=== PATIENT | female | born 1950 | race Caucasian/White ===

== ENCOUNTER 2017-08-18 12:44 | Observation (INO) | payer MEDICARE, SELFPAY ==
[2017-08-18] MEDS ORDERED: Lorazepam 2 MG/ML VIAL ONE (12:58)
[2017-08-18] MEDS ORDERED: Acetaminophen 500 MG TAB ONE (13:37)
[2017-08-18] MEDS ORDERED: Ondansetron HCl/PF 4 MG/2 ML Vial IVP PRN (16:28)
[2017-08-18] MEDS ORDERED: Ondansetron ODT 4 MG TAB SL PRN (16:28)
[2017-08-18] MEDS ORDERED: Acetaminophen 325 MG TAB PO PRN (18:00)
[2017-08-18] MEDS ORDERED: Lorazepam 0.5 MG TAB PO PRN (18:10)
--- NOTE | 2017-08-18 18:55 | RAD ---
PORTABLE CHEST: 08/18/17 INDICATIONS: Chest pain. Lungs are clear. Heart and mediastinum appear normal. Vascular markings are normal. IMPRESSION: Unremarkable portable chest. POS: [facility]
[2017-08-18 19:38] LABS: ALT (SGPT) 22 U/L (8-55); AST (SGOT) 22 U/L (5-34); Alkaline Phosphatase 118 U/L (40-150); Anion Gap 13 mmol/L (10-20); BUN (Urea Nitrogen) 15 mg/dL (9.8-20.1); Bilirubin, Total 0.3 mg/dL (0.2-1.2); Calc. Creatinine Clearance 97 mL/min (70-130); Calcium 9.4 mg/dL (7.8-10.44); Carbon Dioxide 24 mmol/L (23-31); Chloride 106 mmol/L (98-107); Estimated GFR-MDRD 74; Globulin 2.8 g/dL (2.4-3.5); Glucose 118 mg/dL (80-115); Potassium 3.6 mmol/L (3.5-5.1); Protein, Total 6.8 g/dL (6.0-8.3); Sodium 139 mmol/L (136-145)
[2017-08-18 19:44] LABS: Troponin I 0.011 ng/mL (< 0.028)
[2017-08-18 19:51] LABS: #Basophils 0.1 thou/uL (0.0-0.2); #Eosinphils 0.2 thou/uL (0.0-0.7); #Lymphocytes 1.7 thou/uL (1.20-3.40); #Monocytes 0.6 thou/uL (0.11-0.59); #Neutrophils 4.3 thou/uL (1.40-6.50); %Basophils 1.2 % (0.0-1.0); %Eosinophils 2.3 % (0.0-10.0); %Lymphocytes 25.3 % (21.0-51.0); %Monocytes 8.6 % (0.0-10.0); %Neutrophils 62.6 % (42.0-75.0); Hemoglobin 13.8 g/dL (12.0-16.0); Mean Corpuscular HGB CONC 32.3 g/dL (32.0-36.0); Mean Corpuscular Hemoglobin 28.7 pg (27.0-31.0); Mean Corpuscular Volume 88.7 fl (81.0-99.0); Mean Platelet Volume 7.1 fL (7.4-10.4); Platelet Count 255 thou/uL (130-400); RBC Distribution Width 12.8 % (11.5-14.5); White Blood Cell (WBC) Count 6.9 thou/uL (4.8-10.8)
[2017-08-18] MEDS: Lorazepam 1 MG TAB PO PRN (22:43)
[2017-08-19] MEDS: Acetaminophen 325 MG TAB PO PRN ×2 (08:07→18:25)
[2017-08-19] MEDS: Lorazepam 1 MG TAB PO PRN ×2 (08:07→20:55)
[2017-08-19] MEDS ORDERED: Ondansetron ODT 4 MG TAB PO PRN (11:11)
[2017-08-19 17:54] LABS: Amphetamine Not Detected (NotDetected); Barbiturates Screen Not Detected (NotDetected); Benzodiazepine Screen Detected (NotDetected); Cocaine Metabolite Screen Not Detected (NotDetected); Medtox Control Line Valid? VALID (VALID); Methadone Not Detected (NotDetected); Methamphetamine Not Detected (NotDetected); Opiate Screen Not Detected (NotDetected); Oxycodone Screen Not Detected (NotDetected); Phencyclidine (PCP) Not Detected (NotDetected); THC/Cannabinoid Screen Not Detected (NotDetected); Tricyclic Screen Not Detected (NotDetected)
[2017-08-19] MEDS ORDERED: Naproxen 500 MG TAB PO SCH (21:45)
[2017-08-19 23:08] LABS: Bilirubin Negative (Negative); Blood, Urine Negative (Negative); Clarity Clear (Clear); Glucose, Urine (Dipstick) Negative (Negative); Leukocyte Small (Negative); Nitrite Negative (Negative); Protein, Urine (Dipstick) Negative (Neg-Trace); Urobilinogen 0.2 mg/dL (0.2-1.0); pH, Urine 5.5 (5.0-9.0)
[2017-08-19 23:24] LABS: Bacteria/HPF 1+ HPF (None Seen); RBC/HPF None Seen HPF (0-3); Squamous Epithelial None Seen HPF (0-3); WBC/HPF 0-3 HPF (0-3)
--- NOTE | 2017-08-20 01:11 | HP ---
History and physical for placement in the observation diallo. DATE OF PLACEMENT IN THE OBSERVATION DIALLO: 08/18/2017 CHIEF COMPLAINT: Severe headache, tearfulness, dyspnea, anxiety. HISTORY OF PRESENT ILLNESS: The patient is a 67-year-old white female, not well known to myself, who has periodically been in the office for complaints of bronchitis and nasal congestion, who presented to the emergency room hysterically crying, anxiety, headaches, numbness and tingling in both arms an d legs for the previous 24 hours. She has no previous history of hypertension, coronary artery disea se, or pulmonary disease. She has been under a great deal of stress secondary to family stress relat ed to the of her parents and subsequent settling over the state, and has recently been served a n eviction notice. She is recently , but her is not present and out of state at this time. She does state that she has never attempted suicide, but has thought about suicide the last se veral weeks and has had a gun in her hand when she thought about it. She was seen in the emergency r oom, evaluated, and appeared to improve with IM lorazepam and Tylenol, but refused to go home as she felt she could not care for herself. Therefore, she has been placed in the observation diallo for charbel toring of her condition and for a possible mental health evaluation. REVIEW OF SYSTEMS: HEENT: Complained of headache with no eye pain. No sore throat or hoarseness. Cardiovascular: She denies chest pain, but does state that she has some shortness of breath and diff iculty catching her breath. She denied any wheezing. She has no orthopnea, paroxysmal nocturnal dys pnea. She has no dyspnea on exertion. Respiratory: She denies cough, sputum production, pneumonia, asthma, tuberculosis. Does have a history of bronchitis in the past. Gastrointestinal: She does h ave some nausea, but no vomiting, diarrhea, or abdominal pain. Genitourinary: Denies dysuria, hemat uria, nocturia. Neurologic: She denied any localized numbness or tingling in arms or extremities, b ut says she has diffuse shakiness and tingling over her entire body and feels like her legs she canno t move. Psychiatric: She denies any alcohol or drug abuse, but has had this in her distant past, bu t not recently. PAST MEDICAL HISTORY: Remarkable for hysterectomy, dental surgery. She does have a history of anxie ty, depression, PTSD, but has not taken medication. SOCIAL HISTORY: She is , but recently remarried. She lives alone however at this time. She denies alcohol use. She is a former drug user. Has not used any drugs in 26 years as well as smoke d in . PHYSICAL EXAMINATION: GENERAL: The patient is a middle-aged white female, appears cheerful, but in no acute distress; orie nted x3; fairly cooperative, but somewhat tangential in her answers to her questions and evasive in s ome of the answers. She appears severely anxious and becomes tearful during some of the questions ab out her preceding events leading to her admission. HEENT: Pupils are equal, round, and reactive to light and accommodation. Sclerae anicteric. Conjun ctivae pale. Oral mucous membranes, well hydrated. NECK: Supple. There are no nodes or masses. JVP is not elevated. LUNGS: Clear. CARDIAC: Regular rhythm. No gallops or murmurs. ABDOMEN: Soft and nontender with no masses or organomegaly. SKIN/EXTREMITIES: No edema, clubbing, cyanosis. NEUROLOGIC: Cranial nerves II-XII are intact. Deep tendon reflex is 2+ and equal. There are absent Babinski. LABORATORY DATA: Showed her to have white count of 6900, hematocrit 42, hemoglobin 13. Sodium 139; potassium 3.6; chloride 106; bicarbonate 24; BUN 15; creatinine 0.78; glucose 118, nonfasting; calciu m 9.4. Total bilirubin 0.3, AST 22, ALT 22. Troponin is 0.011. Alkaline phosphatase 118, albumin 4 , globulin 2.8. Drug screen only shows the benzodiazepine that she was given in the emergency room a nd alcohol level is less than 10. The patient had admitted to myself and to psychological counselor in [facility] that she has thou ght about suicide and therefore she was felt to be unsafe to be at home and needs to be on the suicid e watch, if this is not available. ASSESSMENT: Severe anxiety and depression brought on by stress in life, but with suicidal thoughts w ith no actions for some time. PLAN: Consult [facility]. Possibly consider transfer to another facility where suicidal precautions can b e entertained. Discuss situation with when he arrives.
[2017-08-20] MEDS: Acetaminophen 325 MG TAB PO PRN ×2 (04:23→14:38)
[2017-08-20] MEDS: Lorazepam 1 MG TAB PO PRN ×3 (04:24→21:03)
[2017-08-20] MEDS: Naproxen 500 MG TAB PO SCH ×2 (08:58→21:04)
[2017-08-20 16:08] VITALS: BMI 30.7
[2017-08-20 19:25] VITALS: BP 161/75; TEMP 97.6
[2017-08-21] MEDS ORDERED: Lisinopril 5 MG TAB PO SCH (09:00)
--- NOTE | 2017-08-22 08:10 | DIS ---
DATE OF DISCHARGE TO HOME: 08/20/2017 FINAL DIAGNOSES: Acute panic reaction, anxiety reaction secondary to severe stress with suicidal amy ations, resolved with counseling and lorazepam. She has been cleared by [facility] to follow up with [facility] as an outpatient. The patient has been under a great deal of s tress secondary to family, social, and economical stress, presented with severe headache, chest pain, shortness of breath. He was seen in the emergency room to have elevated blood pressure 190/88, init ially 163/74, improved slightly to 142/71, then increased again prior to discharge to 90/88 and then down to 160/75. It was felt this was due to somewhat distress, but because of persistent elevation, she was started on lisinopril 5 mg daily, in addition to her lorazepam 0.5 mg every 6 hours as needed . She has refused any long-acting antidepressants. She does agree to being evaluated by [facility]. PHYSICAL EXAMINATION: Her physical examination in the hospital was entirely normal. LUNGS: Clear. CARDIAC: Shows regular rhythm. ABDOMEN: Soft, nontender. NEUROLOGIC: Intact. LABORATORY DATA: CBC shows a white count of 6900, hematocrit 42, hemoglobin 13. Troponin 0.011. So dium 139, potassium 3.6, chloride 106, bicarb 24, BUN 15, creatinine 0.78, AST 22, ALT 22. Liver fun ctions normal. Urinalysis within normal limits. Toxicology showed less than 10 alcohol and only the benzodiazepine within the Emergency Room drug screen. She is feeling well. She has been discharged to the care of her who will monitor for safety and for followup. She will be seen by myself and followup in 1-2 weeks in [facility].
== END 2017-08-20 21:12 | disposition home or self-care (01) ==
LOC: NAV ERS 12:44 → NAV ACUTE 15:34
PROVIDERS: ADMIT Internal Medicine; ATTEND Internal Medicine
DX: R45.851 Suicidal ideations (principal); F41.1 Generalized anxiety disorder; F43.0 Acute stress reaction; F32.9 Major depressive disorder, single episode, unspecified
CPT/HCPCS: 36415; 71045; 80053; 80306; 80307; 81015; 84484; 85025; 87077; 87086; 87186; 96372; G0378; J2060

== ENCOUNTER 2017-09-19 12:34 | Observation (INO) | payer MEDICARE ==
[2017-09-19] MEDS ORDERED: Sodium Chloride 0.9% 1,000 ML ONE (13:13)
[2017-09-19] MEDS ORDERED: Metoclopramide HCl 10 MG/2 ML VIAL ONE (13:13)
[2017-09-19 13:53] LABS: #Basophils 0.1 thou/uL (0.0-0.2); #Eosinphils 0.2 thou/uL (0.0-0.7); #Lymphocytes 1.6 thou/uL (1.20-3.40); #Monocytes 0.5 thou/uL (0.11-0.59); #Neutrophils 4.8 thou/uL (1.40-6.50); %Basophils 1.2 % (0.0-1.0); %Eosinophils 2.7 % (0.0-10.0); %Lymphocytes 22.4 % (21.0-51.0); %Monocytes 6.7 % (0.0-10.0); %Neutrophils 67.1 % (42.0-75.0); Hemoglobin 13.3 g/dL (12.0-16.0); Mean Corpuscular HGB CONC 31.3 g/dL (32.0-36.0); Mean Corpuscular Hemoglobin 28.1 pg (27.0-31.0); Mean Corpuscular Volume 89.8 fL (78.0-98.0); Mean Platelet Volume 6.8 fL (7.4-10.4); Platelet Count 242 thou/uL (130-400); RBC Distribution Width 13.2 % (11.5-14.5); Red Blood Cell (RBC) Count 4.75 mill/uL (4.20-5.40); White Blood Cell (WBC) Count 7.2 thou/uL (4.8-10.8)
[2017-09-19 14:01] LABS: CKMB 2.3 ng/mL (0-6.6); Troponin I 0.021 ng/mL (< 0.028)
[2017-09-19 14:08] LABS: ALT (SGPT) 22 U/L (8-55); AST (SGOT) 24 U/L (5-34); Albumin 3.9 g/dL (3.4-4.8); Alkaline Phosphatase 122 U/L (40-150); Anion Gap 16 mmol/L (10-20); BUN (Urea Nitrogen) 11 mg/dL (9.8-20.1); Bilirubin, Total 0.4 mg/dL (0.2-1.2); CK (CPK) 88 U/L (29-168); Calc. Creatinine Clearance 0 mL/min (70-130); Calcium 9.2 mg/dL (7.8-10.44); Carbon Dioxide 20 mmol/L (23-31); Chloride 106 mmol/L (98-107); Estimated GFR-MDRD 79; Globulin 2.7 g/dL (2.4-3.5); Glucose 102 mg/dL (80-115); Lipase 19 U/L (8-78); Protein, Total 6.6 g/dL (6.0-8.3); Sodium 138 mmol/L (136-145)
--- NOTE | 2017-09-19 14:54 | RAD ---
PORTABLE SEMIUPRIGHT FRONTAL CHEST RADIOGRAPH; Date: 09/19/17 COMPARISON: 08/18/17. HISTORY: Shortness of breath and chest pain. FINDINGS: Mild increased linear and interstitial density noted bilaterally. No pneumothorax, pleural fluid, foc al consolidation, or alveolar edema. Heart and mediastinal contours are stable. Osseous structures ar e unremarkable. IMPRESSION: No acute findings. POS: [facility]
[2017-09-19 14:56] LABS: Acetaminophen Less than 6.0 mcg/mL (10.0-30.0); Alcohol Less than 10 mg/dL (Less than 10); Salicylate Less than 8.0 mg/dL (15.0-30.0)
[2017-09-19 16:52] VITALS: BMI 30.7
[2017-09-19 17:09] LABS: Amphetamine Not Detected (NotDetected); Barbiturates Screen Not Detected (NotDetected); Benzodiazepine Screen Detected (NotDetected); Cocaine Metabolite Screen Not Detected (NotDetected); Medtox Control Line Valid? VALID (VALID); Methadone Not Detected (NotDetected); Methamphetamine Not Detected (NotDetected); Opiate Screen Not Detected (NotDetected); Oxycodone Screen Not Detected (NotDetected); Phencyclidine (PCP) Not Detected (NotDetected); THC/Cannabinoid Screen Not Detected (NotDetected); Tricyclic Screen Not Detected (NotDetected)
[2017-09-19 17:13] LABS: Bilirubin Negative (Negative); Blood, Urine Negative (Negative); Clarity Clear (Clear); Glucose, Urine (Dipstick) Negative (Negative); Leukocyte Small (Negative); Nitrite Negative (Negative); Protein, Urine (Dipstick) Negative (Neg-Trace); Urobilinogen 0.2 mg/dL (0.2-1.0); pH, Urine 6.5 (5.0-9.0)
[2017-09-19 17:24] LABS: Bacteria/HPF 3+ HPF (None Seen); RBC/HPF 0-3 HPF (0-3); Squamous Epithelial 0-3 HPF (0-3); WBC/HPF 0-3 HPF (0-3)
[2017-09-19] MEDS ORDERED: Lorazepam 0.5 MG TAB PO PRN (21:14)
[2017-09-19] MEDS ORDERED: Naproxen 500 MG TAB PO PRN (21:14)
[2017-09-19] MEDS ORDERED: Lorazepam 1 MG TAB ONE (21:31)
[2017-09-19] MEDS: Acetaminophen 325 MG TAB PO PRN (21:35)
[2017-09-19] MEDS ORDERED: Lorazepam 1 MG TAB PO PRN (21:45)
[2017-09-20] MEDS ORDERED: Multivitamin W/ Minerals 1 TAB PO SCH (09:00)
[2017-09-20] MEDS ORDERED: Lisinopril 5 MG TAB PO SCH (09:00)
[2017-09-20] MEDS ORDERED: Valsartan 80 MG TAB PO SCH (09:00)
[2017-09-20] MEDS ORDERED: Famotidine 20 MG TAB PO SCH (09:00)
[2017-09-20] MEDS ORDERED: Aspirin 81 mg Enteric Coated Tablet PO SCH (09:00)
[2017-09-20] MEDS ORDERED: Citalopram 10 MG TAB PO SCH (09:00)
[2017-09-20] MEDS: Acetaminophen 325 MG TAB PO PRN ×2 (11:38→17:15)
--- NOTE | 2017-09-20 13:17 | SS ---
DATE OF SHORT ADMISSION: To the observation samson, 09/19/2017 DATE OF DISCHARGE: From the observation samson, 09/20/2017 FINAL DIAGNOSES: Severe anxiety reaction associated with increased blood pressure and chest pain. HOSPITAL COURSE: The patient is a 67-year-old white female, well-known to myself with no previous si gnificant medical history, who, over the last several months, has had problems emotionally and financ ially after the of her parents and difficulties with family solving this state. She has recent ly been told that she needs to be evicted and had an episode of panic requiring several days in the h ospital and was discharged home on Ativan 0.5 as needed, but refused antidepressants at that time, bu t again yesterday had an episode of chest pain, shortness of breath, headache. Ambulance was called. She was brought into the emergency room and stated that she could not stay at home alone, was seen in the emergency room, and felt to be having a panic attack, had normal enzymes, EKGs, chest x-ray, C BC, TSH, chemistries, and was felt again to be having a panic attack, responded to Ativan, and was pl aced in the observation samson, and through the night has had no difficulties with stable vital signs. Her blood pressure on admission was 142/75. It is up to 164/79 this morning. The patient had been started on lisinopril at home. Stated that she had a side effect of myalgia with this and wishes to be given another medications. Temperature is 96.3, pulse 72, respirations 20. Lungs are clear. Car diac examination shows regular rhythm. Neurological is intact. Abdomen is soft and nontender. ASSESSMENT: Panic attack, related to family stress. PLAN: Discharge home on citalopram 10 mg daily. Change lisinopril to 80 mg of valsartan daily. Con tinue Ativan 0.5 as needed every 6 hours. Follow up with psychologist or psychiatrist as needed or m yself in 1 month if refuses to do this.
[2017-09-20 15:24] VITALS: BP 174/72; TEMP 97.8
== END 2017-09-20 18:01 | disposition home or self-care (01) ==
LOC: NAV ERS 12:34 → NAV ACUTE 15:55
PROVIDERS: ADMIT Internal Medicine; ATTEND Internal Medicine
DX: F41.0 Panic disorder [episodic paroxysmal anxiety] (principal); R07.9 Chest pain, unspecified; R51 Headache; R06.02 Shortness of breath; R03.0 Elevated blood-pressure reading, without diagnosis of hypertension; Z79.899 Other long term (current) drug therapy
CPT/HCPCS: 71045; 80053; 80306; 80307; 81003; 81015; 82550; 82553; 83690; 84443; 84484; 85025; 93005; 96361; 96365; G0378; J2765; J7050

== ENCOUNTER 2020-01-29 00:08 | Emergency (ER) | payer MEDICARE ==
[2020-01-29] MEDS ORDERED: Fentanyl 100 MCG/2 ML VIAL ONE ×3 (00:35→02:21)
[2020-01-29] MEDS ORDERED: Ondansetron PF 4 MG/2 ML Vial ONE (00:35)
[2020-01-29] MEDS ORDERED: Sodium Chloride 0.9% 1,000 ML ONE (00:35)
[2020-01-29 00:37] LABS: #Basophils 0.1 thou/uL (0.0-0.2); #Eosinphils 0.2 thou/uL (0.0-0.7); #Lymphocytes 1.4 thou/uL (1.20-3.40); #Monocytes 0.9 thou/uL (0.11-0.59); %Basophils 0.9 % (0.0-1.0); %Eosinophils 1.7 % (0.0-10.0); %Lymphocytes 11.4 % (21.0-51.0); %Monocytes 6.9 % (0.0-10.0); %Neutrophils 79.1 % (42.0-75.0); Hemoglobin 13.8 g/dL (12.0-16.0); Mean Corpuscular HGB CONC 32.1 g/dL (32.0-36.0); Mean Corpuscular Hemoglobin 30.2 pg (27.0-31.0); Mean Platelet Volume 6.7 fL (7.4-10.4); Platelet Count 243 thou/uL (130-400); RBC Distribution Width 12.8 % (11.5-14.5); Red Blood Cell (RBC) Count 4.57 mill/uL (4.20-5.40); White Blood Cell (WBC) Count 12.6 thou/uL (4.8-10.8)
[2020-01-29 00:45] LABS: ALT (SGPT) 20 U/L (8-55); AST (SGOT) 20 U/L (5-34); Alkaline Phosphatase 127 U/L (40-110); Anion Gap 16 mmol/L (10-20); BUN (Urea Nitrogen) 12 mg/dL (9.8-20.1); Bilirubin, Total 0.6 mg/dL (0.2-1.2); Calc. Creatinine Clearance 0 mL/min (70-130); Carbon Dioxide 20 mmol/L (23-31); Chloride 100 mmol/L (98-107); Estimated GFR-MDRD 67; Globulin 3.2 g/dL (2.4-3.5); Glucose 120 mg/dL (80-115); Lipase 17 U/L (8-78); Potassium 4.1 mmol/L (3.5-5.1); Protein, Total 7.2 g/dL (6.0-8.3); Sodium 132 mmol/L (136-145)
[2020-01-29] MEDS ORDERED: metroNIDAZOLE 500 MG/100 ML BAG ONE (02:02)
[2020-01-29 02:35] LABS: Bilirubin Negative (Negative); Blood, Urine Negative (Negative); Clarity Clear (Clear); Glucose, Urine (Dipstick) Negative (Negative); Ketone, Urine Negative (Negative); Leukocyte Small (Negative); Nitrite Negative (Negative); Protein, Urine (Dipstick) Negative (Neg-Trace); Specific Gravity, Urine 1.015 (1.005-1.030); Urobilinogen 0.2 mg/dL (Less than 2); pH, Urine 7.5 (5.0-9.0)
[2020-01-29 02:41] LABS: Bacteria/HPF Rare-Few HPF (None Seen); RBC/HPF 0-3 HPF (0-3)
--- NOTE | 2020-01-29 08:36 | CT ---
PRELIMINARY REPORT/[facility]/EMERGENCY AFTER HOURS PROCEDURE: This report was discussed with JEFFREY HANLEY MD by Lisa Quan on Jan 29, 2020 01:48:00 [employer] . Addendum electronically signed by Lisa Quan on January 29, 2020 1:48:46 [address] [employer] CT OF THE ABDOMEN AND PELVIS WITH IV CONTRAST CLINICAL HISTORY: RLQ abdominal pain x 1 day TECHNIQUE: Serial axial images obtained. Sagittal reconstructed images obtained. Coronal reconstructed images obtained. Exam is performed with the standard dose of intravenous contrast. Per PQRS, CT exam is performed using one or more of the following dose reduction techniques: Automate d exposure control, adjustment of the mA and/or KV according to patient size, or use of iterative rec onstruction techniques. COMPARISON: None FINDINGS: There is demonstration of thickening and inflammation of the appendix with an appendicolith seen cons istent with acute appendicitis. Negative for perforation or abscess formation at this time. Multiple gallstones are seen. The uterus and adnexa are unremarkable. Mild disc space narrowing and osteophyte formation of the lumbar spine is seen at multiple levels. The rest of the solid organs, viscera and bones are unremarkable. IMPRESSION: 1. Acute appendicitis. Negative for perforation or abscess. 2. Cholelithiasis. Request for telephone communication with the referring physician was submitted through the [facility] [employer] communication system. ELECTRONICALLY SIGNED BY: Roscoe Talley MD Jan 29, 2020 1:45:09 AM [employer] This report is intended for review by the ordering physician only, in accordance of law. If you recei ve this report in error, please call [facility] at [phone]. FINAL REPORT EMERGENT AFTER HOURS CT OF THE ABDOMEN AND PELVIS WITHOUT CONTRAST: FINDINGS/IMPRESSION: I agree with the findings and impression given in the preliminary report per [facility] physici an. 1. Acute appendicitis. 2. Cholelithiasis. 3. Fatty liver. POS: [facility]
== END 2020-01-29 03:07 | disposition short-term general hospital (02) ==
LOC: NAV ERS 00:08
DX: K35.80 Unspecified acute appendicitis (principal); I10 Essential (primary) hypertension; Z87.891 Personal history of nicotine dependence
CPT/HCPCS: 36415; 74176; 80053; 81003; 81015; 83605; 83690; 85025; 96365; 96375; 96376; J2405; J3010; J7050